=== PATIENT | female | born 1955 | race Caucasian/White ===

== ENCOUNTER 2017-11-05 18:40 | Emergency (ER) | payer MEDICAID ==
[~2017-11-05] VITALS: Ht 162.6 cm; Wt 65.3 kg
[2017-11-05] MEDS ORDERED: HYDROcodone/acetaminophen 10/325mg tab PO ONE (20:35)
[2017-11-05] MEDS ORDERED: ondansetron 4mg rapidly disintigrating tab PO ONE (20:35)
[2017-11-05 21:17] VITALS: BP 123/81
== END 2017-11-05 21:18 | disposition home or self-care (01) ==
LOC: ER 18:40
DX: S09.90XA Unspecified injury of head, initial encounter (principal); F17.200 Nicotine dependence, unspecified, uncomplicated; Z88.1 Allergy status to other antibiotic agents; Z56.0 Unemployment, unspecified; W17.89XA Other fall from one level to another, initial encounter; Y93.89 Activity, other specified; Y92.89 Other specified places as the place of occurrence of the external cause; Y99.8 Other external cause status
CPT/HCPCS: 70450; 72125; 99284; L0172

== ENCOUNTER 2020-07-02 08:05 | Day surgery (SDC) | payer MEDICARE, MEDICAID ==
[2020-06-28 10:59] LABS: BASOPHILS # (AUTO) 0.1 X10'3 (0-0.2); BASOPHILS % (AUTO) 1.2 % (0-1); EOSINOPHILS # (AUTO) 0.1 X10'3 (0-0.9); EOSINOPHILS % (AUTO) 1.9 % (0-6); LYMPHOCYTES # (AUTO) 1.1 X10'3 (1.1-4.8); LYMPHOCYTES % (AUTO) 22.4 % (21-51); MEAN CORPUSCULAR HEMOGLOBIN 34.2 PG (27.0-31.0); MEAN CORPUSCULAR VOLUME 100.7 FL (78-98); MEAN PLATELET VOLUME 8.3 FL (7.4-10.4); MONOCYTES # (AUTO) 0.4 X10'3 (0-0.9); NEUTROPHILS # (AUTO) 3.1 X10'3 (1.8-7.7); NEUTROPHILS % (AUTO) 66.5 % (42-75); PRE OP HEMATOCRIT 29.6 % (35.0-45.0); PRE OP PLATELET COUNT 185 X10'3 (140-440); RED BLOOD COUNT 2.94 X10'6 (4.20-5.60); RED CELL DISTRIBUTION WIDTH 14.6 % (11.5-14.5)
[2020-06-28 11:05] LABS: PRE OP HEMOGLOBIN 10.1 g/dL (12.0-16.0)
[2020-06-28 11:09] LABS: PRE OP PROTIME 10.4 SECONDS (9.0-12.0)
[2020-06-28 11:25] LABS: ALBUMIN 3.7 G/DL (3.4-5.0); ALBUMIN/GLOBULIN RATIO 1.3 (1.1-1.5); ALKALINE PHOSPHATASE 54 IU/L (46-116); BLOOD UREA NITROGEN 13 MG/DL (7-18); BUN/CREATININE RATIO 11.7 (6.6-38.0); CALCIUM 8.4 MG/DL (8.5-10.1); CHLORIDE 105 MMOL/L (99-107); CREATININE 1.11 MG/DL (0.40-0.90); PRE OP ALT 21 U/L (30-65); PRE OP ANION GAP 7 (8-16); PRE OP AST 27 U/L (10-37); PRE OP BILIRUB, TOTAL 0.3 MG/DL (0.0-1.0); PRE OP GLUCOSE 102 MG/DL (70-104); PRE OP POTASSIUM 3.5 MMOL/L (3.4-5.1); PRE OP SODIUM 141 MMOL/L (135-145); TOTAL CARBON DIOXIDE 29.2 MMOL/L (24-32); TOTAL PROTEIN 6.6 G/DL (6.4-8.2); eGFR 50 ML/MIN
[~2020-07-02] VITALS: Ht 162.6 cm; Wt 54.4 kg
[~2020-07-02 08:05] MED LIST: BUPIVAcaine/PF 2.5mg/ml (0.25%) 10ml vial ONE; CYAN-51 PO; GLE400T PO; OMEP20CA15 PO; PREG150C PO; QUET200T30 PO; VENL-191 PO; albuterol 2.5 MG/3 ML nebule NEB ONE; famotidine 20mg tablet PO ONE; ringers solution, lacted 1,000 ML IV SCH
[2020-07-02] MEDS ORDERED: LIDOcaine 0.5% (5mg/ml) 50ml vial ONE (08:06)
[2020-07-02] MEDS ORDERED: labetalol 20mg/4ml (5mg/ml) syringe IV PRN (08:20)
[2020-07-02] MEDS ORDERED: hydrALAZINE 20mg/ml inj. IV PRN (08:20)
[2020-07-02] MEDS ORDERED: ringers solution, lacted 1,000 ML IV SCH (08:20)
[2020-07-02] MEDS ORDERED: morphine 2 MG/ML inj. syringe IV PRN (08:20)
[2020-07-02] MEDS ORDERED: ondansetron/PF 4mg/2ml inj IV PRN (08:20)
[2020-07-02] MEDS ORDERED: fentaNYL/PF 50MCG/1 ML 2ML syringe IV PRN ×2 (08:20)
[2020-07-02] MEDS ORDERED: morphine 4 MG/ML inj SYRINge IV PRN (08:20)
[2020-07-02 08:25] VITALS: BP 108/65
[2020-07-02] MEDS ORDERED: ceFAZolin/D5W- 1GM premix 50 ML IV ONE (08:45)
[2020-07-02] MEDS ORDERED: ceFAZolin 2gm in dextrose, iso 50 ML IV ONE (08:45)
[2020-07-02] MEDS ORDERED: MIDAZolam 5mg/5ml vial ONE (09:49)
[2020-07-02] MEDS ORDERED: fentaNYL/PF 50MCG/1 ML 2ML syringe ONE (09:49)
[2020-07-02] MEDS ORDERED: ketorolac trometh. 30mg/ml inj. ONE (10:05)
[2020-07-02 10:29] VITALS: BP 114/70
--- NOTE | 2020-07-02 10:29 | NUR ---
Received from OR via [facility], accompanied by Anesthesiologist KVNG and report given by Anesthesiolgist. PT SLEEPY BUT RESPONSIVE, ALL VS STABLE MASK TO 10L AND SATS 100%. LEFT HAND IS WRAPPED WITH DRESSING AND STALIN WRAP IN PLACE. FINGERS EXPOSED AND GOOD CAP REFILL.
[2020-07-02 10:40] VITALS: BP 116/58
[2020-07-02 10:50] VITALS: BP 108/56
[2020-07-02 11:00] VITALS: BP 122/51
--- NOTE | 2020-07-02 11:29 | NUR ---
Pt discharged to home by vehicle after IV dc'd and all belongings returned to patient. She and pt's family verbalized understanding of all DC instructions. Ice pack given to patient. She knows to call pharmacy about follow up meds. Instructed about respiratory care, follow up care, MD appointment etc.
== END 2020-07-02 11:29 | disposition home or self-care (01) ==
LOC: PAS 08:05
PROVIDERS: ATTEND Orthopaedic Surgery Hand Surgery
DX: S66.212A Strain of extensor muscle, fascia and tendon of left thumb at wrist and hand level, initial encounter (principal); F31.9 Bipolar disorder, unspecified; J44.9 Chronic obstructive pulmonary disease, unspecified; K21.9 Gastro-esophageal reflux disease without esophagitis; G89.29 Other chronic pain; M81.0 Age-related osteoporosis without current pathological fracture; E78.5 Hyperlipidemia, unspecified; Z98.890 Other specified postprocedural states; F17.210 Nicotine dependence, cigarettes, uncomplicated; Z88.1 Allergy status to other antibiotic agents; Z79.899 Other long term (current) drug therapy; Z79.01 Long term (current) use of anticoagulants; Z20.828 Contact with and (suspected) exposure to other viral communicable diseases; Z82.49 Family history of ischemic heart disease and other diseases of the circulatory system; X58.XXXA Exposure to other specified factors, initial encounter; Y93.89 Activity, other specified; Y92.89 Other specified places as the place of occurrence of the external cause; Y99.8 Other external cause status
CPT/HCPCS: 26480; 36415; 80053; 82948; 85025; 85610; 85730; 87635; 93005; 94640; J1885; J2001; J2250; J3010; J3490; J7120; A4215; A4618; A7000